=== PATIENT | male | born 2000 | race Caucasian/White ===

== ENCOUNTER 2023-03-18 10:12 | Emergency (ER) | payer OTHER, SELFPAY ==
[2023-03-18 10:17] VITALS: BP 130/78; PULSE 84; RESP 18; TEMP 36.3; O2SAT 98; BMI 25.1
--- NOTE | 2023-03-18 10:28 | ED.GENADULT ---
HPI - General Adult General Date Seen: 03/18/23 Chief complaint: Extremity Pain/Injury, Lower Stated complaint: R knee injury Time Seen by Provider: 03/18/23 10:22 History of Present Illness HPI narrative: This patient presented to the ER this morning but then left before he was seen by a provider. It sounds like he came to the ER desiring and a knee MRI, which is not available through the emergency department today. He left without being seen. Related Data Home Medications Medication Instructions Recorded Confirmed clindamycin phosphate 1 % lotion topical 03/17/23 03/17/23 dapsone 7.5 % topical gel with pump topical 03/17/23 03/17/23 doxycycline hyclate 100 mg capsule 100 mg PO DAILY 03/17/23 03/18/23 tretinoin 0.025 % topical cream 1 applic topical DAILY 03/18/23 03/18/23 Allergies Allergy/AdvReac Type Severity Reaction Status Date / Time No Known Drug Allergies Allergy Verified 03/17/23 14:53 Exam Const: Vital Signs, click to edit/add: Vital Signs - 24 hr 03/18/23 10:17 Temperature 97.4 F L Pulse Rate [Right Pulse Oximeter] 84 Respiratory Rate 18 Blood Pressure [Ri ght Upper Arm] 130/78 Pulse Oximetry 98 Oxygen Delivery Me thod Room Air Course Vital Signs Vital signs: Initial Vital Signs Temperature 97.4 F L 03/18/23 10:17 Temperature Source Temporal Artery Scan 03/18/23 10:17 Pulse Rate 84 03/18/23 10:17 Respiratory Rate 18 03/18/23 10:17 Blood Pressure 130/78 03/18/23 10:17 Blood Pressure Mean 95 03/18/23 10:17 Blood Pressure Position Sitting 03/18/23 10:17 Pulse Oximetry 98 03/18/23 10:17 Oxygen Delivery Method Room Air 03/18/23 10:17 Vital Signs Temperature 97.4 F L 03/18/23 10:17 Pulse Rate 84 03/18/23 10:17 Respiratory Rate 18 03/18/23 10:17 Blood Pressure 130/78 03/18/23 10:17 Pulse Oximetry 98 03/18/23 10:17 Oxygen Delivery Method Room Air 03/18/23 10:17 Temperature 97.4 F L 03/18/23 10:17 Pulse Rate 84 03/18/23 10:17 Respiratory Rate 18 03/18/23 10:17 Blood Pressure 130/78 03/18/23 10:17 Pulse Oximetry 98 03/18/23 10:17 Oxygen Delivery Method Room Air 03/18/23 10:17 Discharge Plan Discharge Prescriptions: No Action doxycycline hyclate 100 mg capsule 100 mg PO DAILY clindamycin phosphate 1 % lotion topical dapsone 7.5 % gel with pump topical tretinoin 0.025 % cream 1 applic topical DAILY Follow Up/Referrals: Provider,Not a Local [Primary Care Provider] -
== END 2023-03-18 10:47 | disposition left against medical advice (07) ==
LOC: ED 10:34
PROVIDERS: Emergency Provider Emergency Medicine
DX: Z53.21 Procedure and treatment not carried out due to patient leaving prior to being seen by health care provider (principal)
CPT/HCPCS: 99281

== ENCOUNTER 2023-03-19 16:40 | Emergency (ER) | payer OTHER, SELFPAY ==
[2023-03-19 17:16] VITALS: BP 131/81; PULSE 83; RESP 18; TEMP 37; O2SAT 98; BMI 25.1
--- NOTE | 2023-03-19 17:41 | ED.LOWEXIN ---
HPI - Extremity Injury (Lower) General Time Seen by Provider: 17:41 Date Seen: 03/19/23 Chief Complaint: Extremity Pain/Injury, Lower Stated Complaint: R knee injury Time Seen by Provider: 03/19/23 17:41 Source: patient and RN notes reviewed Mode of arrival: ambulatory Limitations: no limitations History of Present Illness HPI Narrative: Patient injured his knee skiing on Sunday, he was skiing on fake snow, was slippery. Sounds as if his skis and his knee did not moved together, he twisted his knee. He went to the urgent care on Sunday, was told he probably had an internal derangement of his knee and needed an MRI. He came to the ER here yesterday but was aware that he was not going to get an MRI of his knee and left. He had knee surgery on his left knee at [facility] before, did contact them. He cannot get in till later March to see them, MRI is going to be out until I believe he said the 16th. He does have the number for our orthopedist here in town as well. I did review with him that we do not do emergent MRIs of the knee and orthopedic injuries out of the ER. It may have happened in the past but there have been insurance changes, we do not have a prior authorization process. Reviewed with him that this is not seen to be in emergent need for use of an emergent MRI. He notes that he has had some catching sensation in the knee, has felt more painful. He has a sleeve on this, is wearing it all the time. Sometimes rolling over at night it will catch. He declines crutches from me, states he can not get them from the operations trainer. He can ambulate with out discomfort at times, he will have discomfort when he feels a catch in the knee. It does not sound like it is locking or unstable for the most part. There is no numbness tingling. He points to the lateral joint where he feels more pain. Related Data Home Medications Medication Instructions Recorded Confirmed clindamycin phosphate 1 % lotion topical 03/17/23 03/17/23 dapsone 7.5 % topical gel with pump topical 03/17/23 03/17/23 doxycycline hyclate 100 mg capsule 100 mg PO DAILY 03/17/23 03/19/23 tretinoin 0.025 % topical cream 1 applic topical DAILY 03/18/23 03/19/23 Allergies Allergy/AdvReac Type Severity Reaction Status Date / Time No Known Drug Allergies Allergy Verified 03/19/23 17:19 Review of Systems Narrative: As per HPI. [facility] Social History Smoking Status: Never smoker Do you use any of these nicotine containing products: None Second hand tobacco smoke exposure: No How often do you have a drink containing alcohol: never AUDIT-C Alcohol total score: 0 Non-prescribed substance use: denies use Exam Const: Vital Signs, click to edit/add: Vital Signs - 24 hr 03/19/23 17:16 Temperature 98.6 F Pulse Rate [Pulse Oximeter] 83 Respiratory Rate 18 Blood Pressure [Ri ght Upper Arm] 131/81 Pulse Oximetry 98 Oxygen Delivery Me thod Room Air Patient is alert, interactive, no parents stress. His gait is mildly antalgic. He has a elastic type sleeve on his knee, this was removed. He has a moderate joint effusion, no significant joint line tenderness when I palpate. There is no ecchymosis or erythema overlying the skin. He has full flexion-extension, I do not get a positive Khang's. Testing of his MCL and LCL do not cause any increased pain, I do not feel any increased laxity on exam today , do not note any laxity with testing of the ACL. He actually states that he has surprise, the knee is feeling pretty good right now. Documenting provider has reviewed patient's vital signs: yes Course Course ED Course: Did review that we would not be doing an MRI here today And the rationale behind that. We discussed conservative management in the meantime, he will get crutches from the operations trainer. He declines crutches from us. Did offer the long leg knee immobilizer which he declines. We discussed not weight-bearing if he is having pain in the knee. He does need to follow up with Orthopedics, does need an MRI of this knee but it does not need to happen emergently out of the ED. reviewed with him that by his history, I do have concerns for cartilage tear. He wants to know if it is potentially going to be surgical, reviewed with him it really depends on what the MRI shows and the dispatch specialist whom does these types of injuries and surgeries feels is necessary. His questions were answered, hopefully he can get Orthopedics in a timely fashion. He does have the number for our orthopedist in [facility], can still choose to pursue orthopedic follow-up with [facility] as well. Vital Signs Vital signs: Initial Vital Signs Temperature 98.6 F 03/19/23 17:16 Temperature Source Temporal Artery Scan 03/19/23 17:16 Pulse Rate 83 03/19/23 17:16 Respiratory Rate 18 03/19/23 17:16 Blood Pressure 131/81 03/19/23 17:16 Blood Pressure Mean 97 03/19/23 17:16 Blood Pressure Position Sitting 03/19/23 17:16 Pulse Oximetry 98 03/19/23 17:16 Oxygen Delivery Method Room Air 03/19/23 17:16 Vital Signs Temperature 98.6 F 03/19/23 17:16 Pulse Rate 83 03/19/23 17:16 Respiratory Rate 18 03/19/23 17:16 Blood Pressure 131/81 03/19/23 17:16 Pulse Oximetry 98 03/19/23 17:16 Oxygen Delivery Method Room Air 03/19/23 17:16 Temperature 98.6 F 03/19/23 17:16 Pulse Rate 83 03/19/23 17:16 Respiratory Rate 18 03/19/23 17:16 Blood Pressure 131/81 03/19/23 17:16 Pulse Oximetry 98 03/19/23 17:16 Oxygen Delivery Method Room Air 03/19/23 17:16 Discharge Plan Discharge Clinical Impression: Injury of knee, right Qualifiers: Encounter type: subsequent encounter Qualified Code(s): S89.91XD - Unspecified injury of right lower leg, subsequent encounter Patient Disposition: Home, Self-Care Condition: Stable Instructions: Crutch Instructions (ED), Knee Pain (ED) Additional Instructions: Continue to use the knee sleeve that you are using. Do recommend crutches when needed for pain in the joint. You are going to need to follow up outpatient with Orthopedics or primary care to get your knee MRI scheduled. We do not do these types of imaging emergently through the ER, do not have a prior authorization process. Ice and elevate your knee to help keep down pain and swelling. May need to wait for the MRI as scheduled through [facility]. You could check with some facilities that do x-ray imaging in the [facility] and see if they could get you an earlier but you will need either a clinic provider or orthopedist to order this for you at an outside institution. Prescriptions: No Action doxycycline hyclate 100 mg capsule 100 mg PO DAILY clindamycin phosphate 1 % lotion topical dapsone 7.5 % gel with pump topical tretinoin 0.025 % cream 1 applic topical DAILY Follow Up/Referrals: Provider,Not a Local [Primary Care Provider] - Stand Alone Forms: Retention Education Info Instructions
== END 2023-03-19 17:55 | disposition home or self-care (01) ==
PROVIDERS: Emergency Provider Family Medicine
DX: S89.91XA Unspecified injury of right lower leg, initial encounter (principal); V00.321A Fall from snow-skis, initial encounter
CPT/HCPCS: 99282; 99283